=== PATIENT | male | born 1940 | race African-American/Black ===

== ENCOUNTER 2018-08-28 18:53 | Emergency (ER) | payer OTHER ==
[~2018-08-28] VITALS: Ht 177.8 cm; Wt 73.0 kg
[2018-08-28] MEDS ORDERED: SODIUM CHLORIDE 0.9% 1,000 ML IV ONE (20:35)
[2018-08-28 20:42] LABS: BASOPHILS % 0.4 % (0.0-2.0); EOSINOPHILS % 0.1 % (0.0-5.0); HEMATOCRIT. 38.2 % (42.0-52.0); HEMOGLOBIN. 12.3 g/dL (14.0-18.0); LYMPHOCYTES % 11.4 % (20.0-50.0); MEAN CORPUSCULAR HEMOGLOBIN 22.9 pg (28.0-32.0); MEAN CORPUSCULAR VOLUME 71.3 fL (80.0-94.0); MEAN PLATELET VOLUME 10.6 fl (7.4-10.4); MONOCYTES % 11.5 % (2.0-8.0); NEUTROPHILS % 76.6 % (40.0-76.0); PLATELET 141 x1000/uL (130-400); RED BLOOD CELL COUNT 5.36 mill/uL (4.7-6.1); RED CELL DISTRIBUTION WIDTH 16.5 % (11.6-14.6)
[2018-08-28 20:43] LABS: CHLORIDE 107 mEq/L (98-107)
[2018-08-28 20:44] LABS: INR 1.1; PROTHROMBIN TIME 11.4 sec (9.6-11.0)
[2018-08-28 21:20] LABS: CREATINE KINASE 1988 IU/L (39-308)
[2018-08-28 21:58] LABS: CLARITY URINE CLEAR (CLEAR); COLOR URINE YELLOW (YELLOW); KETONES URINE 1+ (NEGATIVE); LEUKOCYTE ESTERASE URINE NEGATIVE (NEGATIVE); NITRITE URINE NEGATIVE (NEGATIVE); OCCULT BLOOD URINE 3+ (NEGATIVE); PROTEIN URINE NEGATIVE (NEGATIVE); SPECIFIC GRAVITY URINE 1.024 (1.005-1.030)
[2018-08-28 22:28] VITALS: BP 146/68
== END 2018-08-28 23:51 | disposition short-term general hospital (02) ==
LOC: ER 18:53 → CANBEDREQ 08-29 00:01
DX: M62.82 Rhabdomyolysis (principal); N28.9 Disorder of kidney and ureter, unspecified; R47.81 Slurred speech
CPT/HCPCS: 36415; 70450; 71045; 80053; 81003; 82550; 82962; 83880; 84484; 85025; 85610; 93005; 99285; J7030

== ENCOUNTER 2021-04-28 11:54 | Emergency (ER) | payer OTHER ==
[~2021-04-28] VITALS: Ht 180.3 cm; Wt 75.0 kg
[2021-04-28 12:48] LABS: BASOPHILS % 0.3 % (0.0-2.0); EOSINOPHILS % 0.3 % (0.0-5.0); HEMATOCRIT. 31.2 % (42.0-52.0); LYMPHOCYTES % 23.1 % (20.0-50.0); MEAN CORPUSCULAR HEMOGLOBIN 23.4 pg (28.0-32.0); MEAN CORPUSCULAR VOLUME 72.6 fL (80.0-94.0); MONOCYTES % 9.7 % (2.0-8.0); NEUTROPHILS % 66.6 % (40.0-76.0); PLATELET 191 x1000/uL (130-400); RED CELL DISTRIBUTION WIDTH 16.6 % (11.6-14.6)
[2021-04-28 12:54] LABS: CHLORIDE 110 mEq/L (98-107)
[2021-04-28 15:17] LABS: CLARITY URINE CLEAR (CLEAR); COLOR URINE YELLOW (YELLOW); KETONES URINE TRACE (NEGATIVE); LEUKOCYTE ESTERASE URINE NEGATIVE (NEGATIVE); NITRITE URINE NEGATIVE (NEGATIVE); OCCULT BLOOD URINE NEGATIVE (NEGATIVE); PROTEIN URINE NEGATIVE (NEGATIVE); UROBILINOGEN URINE 0.2 E.U./dL (0.2-1.0)
[2021-04-28 15:27] LABS: ETHANOL BLOOD < 10 mg/dL
[2021-04-28 15:30] LABS: *BENZODIAZEPINES SCREEN URINE NEGATIVE (NEGATIVE); *COCAINE SCREEN URINE NEGATIVE (NEGATIVE)
[2021-04-28 15:31] LABS: *AMPHETAMINES SCREEN URINE NEGATIVE (NEGATIVE); *BARBITURATES SCREEN URINE NEGATIVE (NEGATIVE); CANNABINOID URINE SCREEN NEGATIVE (NEGATIVE); METHADONE URINE SCREEN NEGATIVE (NEGATIVE); OPIATES URINE SCREEN NEGATIVE (NEGATIVE); PHENCYCLIDINE URINE SCREEN NEGATIVE (NEGATIVE)
[2021-04-28 15:32] LABS: CREATINE KINASE 270 IU/L (39-308)
[2021-04-28] MEDS ORDERED: VANCOMYCIN 1G PREMIX 200 ML IV NR (17:00)
[2021-04-28] MEDS ORDERED: PIPERACILLIN/TAZ 3.375G PREMIX 50 ML IV NR (17:00)
[2021-04-28] MEDS ORDERED: INSULIN REGULAR (HUMULIN R) 300UNITS/3ML VIAL IV ONE (19:15)
[2021-04-28] MEDS ORDERED: DEXTROSE 50% WATER 50ML SYRINGE IV ONE (19:15)
[2021-04-28] MEDS ORDERED: ALBUTEROL (0.083%) 2.5MG/3ML NEB HHN ONE (19:15)
[2021-04-28 21:00] VITALS: BP 117/43
== END 2021-04-28 20:30 | disposition short-term general hospital (02) ==
LOC: ER 11:59 → CANBEDREQ 04-29 16:44
DX: E87.5 Hyperkalemia (principal); N17.9 Acute kidney failure, unspecified; J18.9 Pneumonia, unspecified organism; R51.9 Headache, unspecified; Z20.822 Contact with and (suspected) exposure to COVID-19
CPT/HCPCS: 36415; 70450; 71045; 72170; 74176; 80053; 80305; 80320; 81003; 82140; 82550; 83605; 83690; 83880; 84484; 85025; 87040; 87086; 87426; 93005; 96365; 96367; 99291; J2543; J3370; G0480

== ENCOUNTER 2021-05-12 13:06 | Emergency (ER) | payer MEDICAID, OTHER ==
[~2021-05-12] VITALS: Ht 172.7 cm; Wt 73.0 kg
[2021-05-12] MEDS ORDERED: SODIUM CHLORIDE 0.9% 500 ML IV ONE (14:30)
[2021-05-12 15:21] LABS: BASOPHILS % 0.1 % (0.0-2.0); CHLORIDE 109 mEq/L (98-107); HEMATOCRIT. 34.1 % (42.0-52.0); HEMOGLOBIN. 10.9 g/dL (14.0-18.0); MEAN CORPUSCULAR HEMOGLOBIN 23.5 pg (28.0-32.0); MEAN CORPUSCULAR VOLUME 73.1 fL (80.0-94.0); MEAN PLATELET VOLUME 11.3 fl (7.4-10.4); MONOCYTES % 13.9 % (2.0-8.0); PLATELET 199 x1000/uL (130-400); RED BLOOD CELL COUNT 4.66 mill/uL (4.7-6.1); RED CELL DISTRIBUTION WIDTH 17.1 % (11.6-14.6)
[2021-05-12 15:31] LABS: ETHANOL BLOOD < 10 mg/dL
[2021-05-12 15:43] LABS: CREATINE KINASE 1164 IU/L (39-308)
[2021-05-12] MEDS ORDERED: ASPIRIN 325MG EC TABLET PO NR (16:45)
[2021-05-12 17:17] LABS: CLARITY URINE CLEAR (CLEAR); COLOR URINE YELLOW (YELLOW); KETONES URINE TRACE (NEGATIVE); LEUKOCYTE ESTERASE URINE NEGATIVE (NEGATIVE); NITRITE URINE NEGATIVE (NEGATIVE); OCCULT BLOOD URINE NEGATIVE (NEGATIVE); PROTEIN URINE 1+ (NEGATIVE); SPECIFIC GRAVITY URINE 1.021 (1.005-1.030)
[2021-05-12 17:33] LABS: *COCAINE SCREEN URINE NEGATIVE (NEGATIVE)
[2021-05-12 17:34] LABS: *AMPHETAMINES SCREEN URINE NEGATIVE (NEGATIVE); *BARBITURATES SCREEN URINE NEGATIVE (NEGATIVE); CANNABINOID URINE SCREEN NEGATIVE (NEGATIVE); METHADONE URINE SCREEN NEGATIVE (NEGATIVE); OPIATES URINE SCREEN NEGATIVE (NEGATIVE); PHENCYCLIDINE URINE SCREEN NEGATIVE (NEGATIVE)
[2021-05-12 17:35] LABS: *BENZODIAZEPINES SCREEN URINE NEGATIVE (NEGATIVE)
[2021-05-12] MEDS ORDERED: PIPERACILLIN/TAZOBACTAM 3.375GM/50ML PREMIX IV ONE (21:30)
[2021-05-12] MEDS ORDERED: PIPERACILLIN/TAZ 3.375G PREMIX 50 ML IV NR (21:45)
[2021-05-13 02:05] VITALS: BP 137/59
== END 2021-05-13 02:10 | disposition short-term general hospital (02) ==
LOC: ER 13:32
DX: R62.7 Adult failure to thrive (principal); M62.81 Muscle weakness (generalized); N17.9 Acute kidney failure, unspecified; M62.82 Rhabdomyolysis; E87.70 Fluid overload, unspecified; F32.A Depression, unspecified; I10 Essential (primary) hypertension; M19.90 Unspecified osteoarthritis, unspecified site; E11.9 Type 2 diabetes mellitus without complications; D64.9 Anemia, unspecified; R94.39 Abnormal result of other cardiovascular function study; Z68.24 Body mass index [BMI] 24.0-24.9, adult
CPT/HCPCS: 36415; 70450; 71045; 72125; 80053; 80305; 80320; 81003; 82550; 83605; 83880; 84145; 84484; 85025; 86140; 87040; 87086; 87426; 93005; 96365; 99285; J2543; G0480